=== PATIENT | male | born 1940 | race Caucasian/White ===

== ENCOUNTER 2016-11-07 07:19 | Day surgery (SDC) | payer MEDICARE, BC ==
[~2016-11-07 07:19] MED LIST: ACETAMINOPHEN WITH CODEINE 1 EACH TABLET PO PRN; ONDANSETRON HCL/PF 2 MG/ML VIAL IV PRN; OXYBUTYNIN CHLORIDE 5 MG TABLET PO PRN; RINGERS SOLUTION,LACTATED 1,000 ML IV PRN; ceFAZolin SODIUM 1 GM in DEXTROSE 5 % IN WATER 100 ML IV PRN; oxyCODONE HCL/ACETAMINOPHEN 1 TAB TABLET PO PRN
[2016-11-07] MEDS ORDERED: RINGERS SOLUTION,LACTATED 1,000 ML IV ONE (07:52)
[2016-11-07 10:43] VITALS: BP 105/45
== END 2016-11-07 07:20 | disposition home or self-care (01) ==
LOC: AMB 07:19
PROVIDERS: ATTEND Urology
PROC: 0TBC8ZX Excision of Bladder Neck, Via Natural or Artificial Opening Endoscopic, Diagnostic (ICD-10-PCS; principal; 2016-11-07 08:30)
DX: N32.0 Bladder-neck obstruction (principal); Z87.891 Personal history of nicotine dependence

== ENCOUNTER 2016-12-14 16:06 | Emergency (ER) | payer MEDICARE, BC ==
--- OUTSIDE RECORDS SUMMARY | 2016-12-14 17:45 | XMS REPORT | Continuity of Care Document ---
:1940 Author Organization [facility] ([facility]) Address [address] [place] [address] Phone [phone] Care Team Providers Name Role Phone Benja Dennis Primary Care Provider [phone] Source Comments This disclosure is being made pursuant to the Care Everywhere program, applicable federal and state laws, and may not contain all informaitonavailable regarding this patient.[facility] ([facility]) Active Allergies and Adverse Reactions No Active Allergies Current Medications Prescription Sig. Disp. Refills Start End Status Date Date MULTIVITAMINS take 1 Tab by Active (MULTI-VITAMIN PO) mouth daily. aspirin 81 mg tablet take 81 mg by Active mouth daily. cyanocobalamin (VITAMIN take 1,000 mcg by Active B-12) 1,000 mcg tablet mouth daily. CALCIUM take by mouth. Active CARBONATE/VITAMIN D3 (CALCIUM 600 + D PO) ERGOCALCIFEROL (VITAMIN take 2,000 Int'l Active D PO) Units by mouth. DOCOSAHEXANOIC ACID/EPA take 4 Caps by Active (FISH OIL PO) mouth daily. GREEN TEA EXTRACT PO take 2 Tabs by Active mouth daily. vitamin E 400 unit take 400 Units by Active capsule mouth 2 times daily. ascorbic acid (ASCORBIC take 500 mg by Active ACID) 500 mg tablet mouth daily. Selenium 200 mcg Tab take by mouth Active daily. Folic Acid 800 mcg Tab take by mouth Active daily. SOY ISOFLAVONES PO take by mouth Active daily. LYCOPENE PO take 66 mg by Active mouth daily. amlodipine-benazepril take 1 Cap by Active (LOTREL) 5-20 mg per mouth daily. capsule hydrochlorothiazide take 25 mg by Active (HYDRODIURIL) 25 mg mouth daily. tablet Verapamil 240 mg C24P take by mouth. Active nortriptyline (PAMELOR) take 50 mg by Active 50 mg capsule mouth at bedtime. alprostadil (MUSE) 500 insert 1 4 Suppository 11 01/04/20 Active mcg Supp Suppository 10 urethrally as needed. Indications: Erectile Dysfunction alprostadil (CAVERJECT 20 mcg by 4 Each 11 01/04/20 Active IMPULSE) 20 mcg Intracavernosal 10 injection route as needed. 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 go-live --MAL Follow-up examination, following unspecified surgery 11/07/2003 Closed fracture of acetabulum 11/07/2003 Most Recent Encounters Date Type Specialty Providers Description 11/13/2016 Hospital Encounter Radiation Oncology Benja Bran, Chief Comp: Patient MD Reported Reason For Visit 10/30/2016 Hospital Encounter Radiation Oncology Benja Bran, Chief Comp: Patient MD Reported Reason For Visit 10/20/2016 Hospital Encounter Radiation Oncology Benja Bran, Chief Comp: Patient MD Reported Reason For Visit 10/03/2016 Hospital Encounter Radiation Oncology Benja Bran, Chief Comp: Patient MD Reported Reason For Visit Social History Tobacco Use Types Packs/Day Years Used Date Current Every Day Smoker 1 50 Alcohol Use Drinks/Week oz/Week Comments Yes Last Filed Vital Signs Vital Sign Reading Time Taken Blood Pressure 156/69 06/24/2010 3:07 PM CDT Pulse 72 06/24/2010 3:07 PM CDT Temperature 36 C (96.8 F) 06/24/2010 3:07 PM CDT Respiratory Rate 16 06/11/2010 1:49 PM CDT Height 1.8 m (5' 10.87") 06/11/2010 1:49 PM CDT Weight 95.3 kg (210 lb 1.6 oz) 06/24/2010 3:07 PM CDT Body Mass Index 29.41 06/24/2010 3:07 PM CDT Oxygen Saturation 94% 06/11/2010 1:49 PM CDT Plan of Care Health Maintenance Due Date Last Done Comments Hepatitis B Vaccine (1 of 3 - Primary Series) 1940 Tdap Vaccine 1951 Lipid Disorder Screening 1958 Td Vaccine 1958 Colonoscopy 1990 Zoster Vaccine 2000 Pneumococcal Vaccine (1 of 2 - PCV13) 2005 Influenza Vaccine: Seasonal (#1) 06/02/2016 Results from Last 3 Months Not on file
--- OUTSIDE RECORDS SUMMARY | 2016-12-14 17:45 | XMS REPORT | Summary of Care ---
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 Discharge Disposition: 01 Discharged to Home or Self Care Attending Physician: Rommel Meraz MD Referring Physician: Rommel Meraz MD Vital Signs Most recent to oldest [Reference Range]: 1 Temperature Temporal Artery [36.0-38.0 DegC] 36.3 DegC (11/14/16 10:58 AM) Peripheral Pulse Rate [60-100 bpm] 66 bpm (11/14/16 10:58 AM) Blood Pressure [90-130/60-90 mmHg] 136/74mmHg *HI* (11/14/16 10:58 AM) Mean Arterial Pressure, Cuff 95 mmHg (11/14/16 10:58 AM) Height/Length Measured 182 cm (11/14/16 10:58 AM) Weight Dosing 93.30 kg1 (11/14/16 11:01 AM) Weight Measured 93.3 kg (11/14/16 10:58 AM) BSA Measured 2.15 m2 (11/14/16 10:58 AM) Body Mass Index Measured 28.17 kg/m2 (11/14/16 10:58 AM) 1Result Comment: This result was because the dosing weight was either not entered or it is>30 days old. This result is based off: Weight Measured November 14, 2016 10:58:00 MONOGRAM MAKER by Kenisha Cazares RN Problem List Condition Effective Dates Status Health Status Informant Other decreased white blood cell Active count(Confirmed) Allergies, Adverse Reactions, Alerts Substance Reaction Severity Status Levaquin Active Medications amLODIPine-atorvastatin 5 mg-20 mg oral tablet 1 tab(s), Oral, Daily, 0 Refill(s), Start Date: 08/29/14 9:38:00 CDT Start Date: 08/29/14 Status: OrderedamLODIPine-benazepril 5 mg-20 mg oral capsule 1 cap(s), Oral, Daily, # 30 cap(s), 0 Refill(s), Start Date: 09/12/16 16:33:00 [employer]GRAM [employer]ER Start Date: 09/12/16 Status: OrderedBactrim DS 800 mg-160 mg oral tablet 1 tab(s), Oral, BID, X 3 days, # 6 tab(s), 0 Refill(s), Start Date: 11/07/16 9: 28:00 MONOGRAM MAKER, Pharmacy: [place], [place] Start Date: 11/07/16 Stop Date: 11/10/16 Status: CompletedCaverject 20 mcg injection See Instructions, 20 mcg in the penis as needed, # 3 cartridge(s), 3 Refill(s), Start Date: 10/17/16 12:03:00 MONOGRAM MAKER, Pharmacy: [place], [place] Start Date: 10/17/16 Status: Orderedclotrimazole-betamethasone 1%-0.05% topical cream 1 maribell, Topical, BID, X 10 days, # 15 gm, 2 Refill(s), Start Date: 09/12/16 10:31 :00 MONOGRAM MAKER, Pharmacy: [place], [place] Start Date: 09/12/16 Stop Date: 10/12/16 Status: CompletedDaily Multi 1 tab(s), Oral, Daily, 0 Refill(s), Start Date: 08/29/14 9:42:00 CDT Start Date: 08/29/14 Status: Orderedfolic acid 400 mcg, Oral, Daily, 0 Refill(s), Start Date: 08/29/14 9:44:00 CDT Start Date: 08/29/14 Status: Orderedhydrochlorothiazide 25 mg oral tablet 1 tab(s), Oral, Daily, 0 Refill(s), Start Date: 08/29/14 9:39:00 CDT Start Date: 08/29/14 Status: Orderedmagnesium gluconate 250 mg oral tablet 1 tab(s), Oral, Daily, 0 Refill(s), Start Date: 08/29/14 9:43:00 CDT Start Date: 08/29/14 Stop Date: 04/25/16 Status: Discontinuednortriptyline 50 mg, Oral, HS, 0 Refill(s), Start Date: 08/29/14 9:40:00 CDT Start Date: 08/29/14 Status: OrderedOcuvite 1 tab(s), Oral, Daily, 0 Refill(s), Start Date: 08/29/14 9:44:00 CDT Start Date: 08/29/14 Status: OrderedReadi-Cat 2 oral suspension 2 bottles, Oral, ONETIME, CT scheduled on 10-28-16 1:00 p.m., # 2 bottles, 0 Refill(s), Start Date: 10/22/16 16:15:00 MONOGRAM MAKER, Pharmacy: [facility] Start Date: 10/22/16 Stop Date: 11/14/16 Status: Completedverapamil 240 mg/24 hours oral capsule, extended release 1 cap(s), Oral, Daily, 0 Refill(s), Start Date: 08/29/14 9:39:00 CDT Start Date: 08/29/14 Status: OrderedVitamin B-12 1000 mcg oral tablet 1 tab(s), Oral, Daily, 0 Refill(s), Start Date: 08/29/14 9:43:00 CDT Start Date: 08/29/14 Status: OrderedVitamin D with Minerals oral tablet 2000 iu tab(s), Oral, Daily, 0 Refill(s), Start Date: 08/29/14 9:44:00 CDT Start Date: 08/29/14 Status: OrderedXanax 0.25 mg oral tablet 0.25 mg, Oral, As Indicated, takes as needed at hs., 0 Refill(s), Start Date: 9:40:00 CDT Start Date: 08/29/14 Status: Ordered Results No data available for this section Immunizations No data available for this section Procedures Procedure Date Related Diagnosis Body Site Cataract surgery1 Closed reduction of fracture of hip Hip replacement Prostatectomy 1x2 Social History No data available for this section Assessment and Plan No data available for this section
--- NOTE | 2016-12-14 19:02 | ERNOTE ---
Lower Extremity HPI - Narrative Date of Service: 12/14/16 - General Lower Extremities Pain: other: right - calf Time Seen by Provider: 12/14/16 17:32 Source: patient Exam Limitations: no limitations - Immun/Allergies/Home Medications Immunizations: IMMUNIZATION HX Immunizations Up to Date No History of Influenza Vaccine No Hx Pneumococcal Vaccination No Allergies/Adverse Reactions: Allergies Allergy/AdvReac Type Severity Reaction Status Date / Time levofloxacin [From Levaquin] AdvReac Mild RASH Verified 12/14/16 16:33 Home Medications: HOME MEDICATIONS ALPRAZolam [Xanax] 0.25 mg PO HS 10/20/14 [Last Taken Unknown] Amlodipine Besylate/Benazepril [Lotrel 5-20 mg Capsule] 1 cap PO DAILY 10/20/14 [Last Taken 11/07/16 06:00] Beta-Carotene(A) W-C , E/Min [Ocuvite] 1 tab PO DAILY 10/20/14 [Last Taken Unknown] Cholecalciferol (Vitamin D3) [Vitamin D3] 2,000 unit PO DAILY 10/20/14 [Last Taken Unknown] Cyanocobalamin [Vitamin B-12] 1,000 mcg PO DAILY 10/20/14 [Last Taken Unknown] Multivitamins [Multivitamin Sotero] 1 cap PO DAILY 10/20/14 [Last Taken Unknown] Nortriptyline HCl [Pamelor] 50 mg PO HS 10/20/14 [Last Taken Unknown] Verapamil HCl [Verapamil Sr] 240 mg PO DAILY 10/20/14 [Last Taken Unknown] Folic Acid 0.8 mg PO DAILY 09/18/16 [Last Taken Unknown] Hydrochlorothiazide [Hydrodiuril] 12.5 mg PO DAILY 09/18/16 [Last Taken 06:00] Omeprazole [Prilosec] 20 mg PO DAILY 11/06/16 [Last Taken Unknown] - History of Present Illness Narrative: Patient presents to the ED for right calf pain and mild swelling. He denies any trauma. He has noticed this for the last 4 days. Has neuropathy. No new N /T/W given this. He was concerned about blood clot so came to the ED for evaluation. Has not seen anyone else for this. No CP or SOB. No abdominal pain. Achy pain, mild now. Occurred: other - 4 days ago Method of Injury: Reports: other - none Loss of Consciousness: Reports: no loss of consciousness Modifying Factors - (Improves): Reports: other - nothine Modifying Factors - (Worsens): Reports: other - nothing Associated Symptoms: Denies: unable to bear weight, chest pain Other Injuries: Reports: none Subsequent Symptoms: Reports: other - none Prior Treament: Denies: recently seen Review of Systems - Review of Systems Constitutional: Absent: fever Respiratory: Absent: shortness of breath Cardiology: Absent: chest pain Gastrointestinal/Abdominal: Absent: abdominal pain Genitourinary: Present: other - recent surgery Musculoskeletal: Present: See HPI Skin: Absent: rash Neurological: Absent: weakness - Patient's Past Medical History Patient History - Medical: GERD Patient History - Cardiac/Respiratory: Hypertension Patient History - Cancer: Prostate, Other Patient History - Surgical Procedures: Cataracts, Total Hip Replacement, Other Patient History - Other: None - Family History Mother Family History - Medical: , No pertinent hx Family History - Cardiac/Respiratory: CVA/Stroke Father Family History - Medical: , No pertinent hx Family History - Cardiac/Respiratory: CVA/Stroke - Social History Living Situations: home Abuse History: No History of abuse Psych History: No pertinent hx Alcohol Use: occasionally Drug Use: none - Immunizations Immunizations Up to Date: No Hx Pneumococcal Vaccination: No History of Influenza Vaccine: No Physical Exam - Physical Exam General Appearance: Present: alert, no apparent distress Eye Exam: Normal inspection: bilateral, PERRL: bilateral Ears, Nose, Throat: Present: normal ENT inspection Neck: Present: normal inspection Respiratory: Present: no respiratory distress, no accessory muscle use, lungs clear Cardiovascular/Chest: Present: regular rate, rhythm, other - strong DP pulse Gastrointestinal/Abdominal: Present: normal bowel sounds, nontender, soft. Absent: tenderness Back Exam: Present: normal range of motion Extremity Exam: Present: other - No tendenress right hip, knee Tib/ib, ankle, of foot. Strong pulses. mild right calf tenderness. No compartment syndrome. Minimal swelling right c/w left. Neurological Exam: Present: alert, other - no motor or sensory deficits.. Absent: motor weakness Skin Exam: Present: other - no cellulitis. Absent: cyanosis, skin rash ED Progress - Vital Signs Patient's Vital Signs:: I have reviewed the patient's vital signs. Vital Signs: Vital Signs 12/14/16 16:27 Temperature 36.6 C Pulse Rate 76 Respiratory 12 Rate Blood Pressure 138/58 O2 Sat by Pulse 97 Oximetry - Progress/Reassessment Chief Complaint: Lower Extremity Pain/ Injury - Transfer of Care Physician Sign Out: Taye Roberto Receiving Physician: [place] Siddiqi Pending Results: CT/MRI results Expected Disposition: Discharge Departure Clinical Impression: Calf pain - Departure Referrals: Benja Dennis MD [Primary Care Provider] -
[2016-12-14 19:37] VITALS: BP 151/66
== END 2016-12-14 20:07 | disposition home or self-care (01) ==
LOC: ER 16:06
DX: M79.661 Pain in right lower leg (principal)

== ENCOUNTER 2017-09-30 20:58 | Emergency (ER) | payer MEDICARE, BC ==
[2017-09-30] MEDS ORDERED: KETOROLAC TROMETHAMINE 30 MG/ML VIAL IM ONE (21:34)
[2017-09-30] MEDS ORDERED: COD LIVER OIL/ZINC OXIDE 113 APPL TUBE TP ONE (21:36)
[2017-09-30] MEDS ORDERED: KETOROLAC TROMETHAMINE 30 MG/ML VIAL ONE (21:39)
[2017-09-30 21:55] LABS: Hematocrit 25.4 % (42.0-52.0); Hemoglobin 9.3 gm/dL (13.5-18.0); Mean Cell Volume 93.7 fl (78-100); Mean Corpuscular Hemoglobin 34.3 pg (27-31); Mean Corpuscular Hgb Conc 36.6 g/dl (32-36); Mean Platelet Volume 8.2 fl (6.0-9.5); Platelet Count 256 K/mm3 (150-450); Red Blood Count 2.71 M/mm3 (4.7-6.0); Red Cell Distribution Width 14.3 % (11.5-14.0); White Blood Count 4.6 K/mm3 (4.0-10.5)
--- NOTE | 2017-09-30 21:56 | ERNOTE ---
<Meliza Gong - Last Filed: 09/30/17 22:15> ER Male HPI Date of Service: 09/30/17 Stated Complaint: BURNING IN PELVIC AREA/PARANEAL AREA Time Seen by Provider: 09/30/17 21:22 Source: patient Exam Limitations: no limitations Immunizations: IMMUNIZATION HX Immunizations Up to Date Yes History of Influenza Vaccine Yes Hx Pneumococcal Vaccination Yes Allergies/Adverse Reactions: Allergies levofloxacin [From Levaquin] Adverse Reaction (Mild, Verified 12/14/16 16:33) RASH Home Medications: HOME MEDICATIONS ALPRAZolam [Xanax] 0.25 mg PO HS 10/20/14 [Last Taken Unknown] Amlodipine Besylate/Benazepril [Lotrel 5-20 mg Capsule] 1 cap PO DAILY 10/20/14 [Last Taken 11/07/16 06:00] Cyanocobalamin [Vitamin B-12] 1,000 mcg PO DAILY 10/20/14 [Last Taken Unknown] Multivitamins [Multivitamin Sotero] 1 cap PO DAILY 10/20/14 [Last Taken Unknown] Nortriptyline HCl [Pamelor] 50 mg PO HS 10/20/14 [Last Taken Unknown] Verapamil HCl [Verapamil Sr] 240 mg PO DAILY 10/20/14 [Last Taken Unknown] Hydrochlorothiazide [Hydrodiuril] 25 mg PO DAILY 09/18/16 [Last Taken 11/07/16 06:00] Ergocalciferol (Vitamin D2) [Vitamin D2] 2,000 units PO DAILY 09/30/17 [Last Taken Unknown] Sulfamethoxazole/Trimethoprim [Bactrim] 1 tab PO BID 09/30/17 [Last Taken Unknown] Cefpodoxime Proxetil 200 mg PO BID #20 tablet 10/01/17 [Last Taken Unknown] Nabumetone 750 mg PO BID #20 tablet 10/01/17 [Last Taken Unknown] - History of Present Illness Narrative: Pt. comes in with c/o B hip pain and folds and perineal area. Pt. recently had a TURP and ws on the table for a long time and is costantly incontinent so he is alway wet in this area and was seen by his urologist and was strted on abx as he had a fever with this. Pt. denies any SOB, CP, NVD, dysuria, alleviating factors despite using miconazole for this. Pt. also has a hx of hip replacement and has been increasingly weak. Pt. has also recently used Tylenol and Naproxen for the pain with no relief and tried a norco but fell while using this so decided to stop. Pt. denies any new symptoms since fall. Review of Systems - Review of Systems Constitutional: Present: fever, weakness. Absent: recent illness, chills, fatigue, malaise EYE: Present: no symptoms reported. Absent: eye pain ENT: Present: no symptoms reported Respiratory: Present: no symptoms reported. Absent: shortness of breath, cough , wheezing Cardiology: Present: no symptoms reported. Absent: chest pain, palpitations, edema Gastrointestinal/Abdominal: Present: no symptoms reported. Absent: nausea, vomiting, diarrhea, abdominal pain Genitourinary: Present: pain - perineal and groin burning, other - incontinence. Absent: frequency, decreased urinary output Musculoskeletal: Present: joint pain - B hips and ischial spines. Absent: back pain Skin: Present: no symptoms reported. Absent: rash, change in hair/nails Neurological: Present: no symptoms reported. Absent: headache, dizziness/light- headedness, numbness, tingling All Other Systems: All systems neg except as marked - Patient's Past Medical History Patient History - Medical: GERD Patient History - Cardiac/Respiratory: Hypertension Patient History - Cancer: Prostate, Other Patient History - Surgical Procedures: Cataracts, Total Hip Replacement, Other, Urology Patient History - Other: None - Family History Mother Family History - Medical: , No pertinent hx Family History - Cardiac/Respiratory: CVA/Stroke Father Family History - Medical: , No pertinent hx Family History - Cardiac/Respiratory: CVA/Stroke - Social History Living Situations: home Abuse History: No History of abuse Psych History: No pertinent hx Smoking Status: Former smoker Have you smoked in the past 12 months: No Alcohol Use: occasionally Drug Use: none - Immunizations Immunizations Up to Date: Yes Hx Pneumococcal Vaccination: Yes History of Influenza Vaccine: Yes Physical Exam - Physical Exam General Appearance: Present: wd/wn, alert, no apparent distress Head Exam: Present: normal inspection, no evidence of injury, no tenderness w palpation Eye Exam: Normal inspection: bilateral, PERRL: bilateral, EOMI: bilateral Ears, Nose, Throat: Present: normal ENT inspection, normal pharynx Neck: Present: normal inspection, nontender, supple, full range of motion. Absent: lymphadenopathy (R), lymphadenopathy (L) Respiratory: Present: no respiratory distress, normal breath sounds, no accessory muscle use, chest nontender, lungs clear Cardiovascular/Chest: Present: regular rate, rhythm, no murmur, normal peripheral pulses Gastrointestinal/Abdominal: Present: normal bowel sounds, nontender, nondistended, soft, no organomegaly Back Exam: Present: normal inspection, normal range of motion, no CVA tenderness , no vertebral tenderness Extremity Exam: Present: normal inspection, non-tender, normal range of motion, no edema Neurological Exam: Present: alert, oriented, normal mood/affect, no motor/ sensory deficits, 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 Absent: pallor, skin rash ED Progress - Vital Signs Patient's Vital Signs:: I have reviewed the patient's vital signs. Vital Signs: Vital Signs 09/30/17 21:05 Temperature 36.7 C Pulse Rate 87 Respiratory 18 Rate Blood Pressure 144/54 O2 Sat by Pulse 96 Oximetry - Progress/Reassessment Chief Complaint: Genitourinary Problem - Transfer of Care Physician Sign Out: Meliza Gong Receiving Physician: Nba Miguel Pending Results: Labs Expected Disposition: Discharge Departure Clinical Impression: Urinary retention Excoriation of groin Qualifiers: Encounter type: initial encounter Qualified Code(s): S30.811A - Abrasion of abdominal wall, initial encounter Hip pain Qualifiers: Laterality: bilateral Qualified Code(s): M25.551 - Pain in right hip UTI (urinary tract infection) Qualifiers: Urinary tract infection type: acute cystitis Hematuria presence: with hematuria Qualified Code(s): N30.01 - Acute cystitis with hematuria - Departure Disposition: Home Follow Up Needed Condition: Good Instructions: Urinary Tract Infection, Adult, [id number] Referrals: Benja Dennis MD [Primary Care Provider] - Prescriptions: Cefpodoxime Proxetil 200 mg PO BID #20 tablet Nabumetone 750 mg PO BID #20 tablet <Nba Miguel - Last Filed: 10/06/17 04:35> ER Male HPI Immunizations: IMMUNIZATION HX Immunizations Up to Date Yes History of Influenza Vaccine Yes Hx Pneumococcal Vaccination Yes ED Progress - Results and Orders Patient's Lab Results:: I have reviewed the patient's lab results. Results and Orders: Laboratory Tests 09/30/17 09/30/17 09/30/17 21:47 21:47 21:47 WBC 4.6 Hgb 9.3 L Hct 25.4 L Plt Count 256 Sodium 131 L Potassium 3.6 Chloride 94 L BUN 20 Creatinine 1.35 Random Glucose 177 H Lactic Acid, Venous 1.5 Calcium 9.0 Total Bilirubin 0.4 AST 10 ALT 23 Alkaline Phosphatase 116 Total Protein 6.7 Albumin 3.1 L Urine Color Urine Appearance Urine pH Ur Specific [place] Urine Protein Urine Glucose (UA) Urine Ketones Urine Blood Urine Nitrate Urine Bilirubin Prot Sulfosalicylic Acd Urine Urobilinogen Ur Leukocyte Esterase Urine RBC Urine WBC Ur Epithelial Cells Amorphous Sediment Urine Bacteria Urine Culture Comments 09/30/17 22:10 WBC Hgb Hct Plt Count Sodium Potassium Chloride BUN Creatinine Random Glucose Lactic Acid, Venous Calcium Total Bilirubin AST ALT Alkaline Phosphatase Total Protein Albumin Urine Color Yellow Urine Appearance Cloudy Urine pH 6.0 Ur Specific [place] 1.020 Urine Protein 30 H Urine Glucose (UA) Negative Urine Ketones 5 Urine Blood 25 H Urine Nitrate Negative Urine Bilirubin Negative Prot Sulfosalicylic Acd 1+ Urine Urobilinogen Normal Ur Leukocyte Esterase 100 H Urine RBC 5-10 H Urine WBC >50 H Ur Epithelial Cells None seen Amorphous Sediment Moderate - 2+ H Urine Bacteria None seen Urine Culture Comments Culture to follow - Vital Signs Vital Signs: Vital Signs 09/30/17 09/30/17 21:05 23:18 Temperature 36.7 C Pulse Rate 87 84 Respiratory 18 18 Rate Blood Pressure 144/54 132/56 O2 Sat by Pulse 96 96 Oximetry
[2017-09-30 21:57] LABS: Total Cells Counted 100
[2017-09-30 22:09] LABS: Albumin * 3.1 gm/dl (3.4-5.0); Anion Gap 13.8 mmol/L (6.8-13.8); BUN/Creatinine Ratio 14.8 (9.0-21.6); Bilirubin, Total 0.4 mg/dL (0.0-1.1); Ca. Corrected For Albumin 9.4 mg/dL (8.4-10.2); Carbon Dioxide 26.8 mmol/L (24-32.6); Potassium 3.6 mmol/L (3.4-4.6); Total Protein 6.7 gm/dL (6.2-8.2)
[2017-09-30] MEDS ORDERED: NORMAL SALINE 1,000 ML IV ONE (22:15)
[2017-09-30 22:23] LABS: Urine Bilirubin Negative (NEGATIVE); Urine Blood 25 /ul (NEGATIVE); Urine Ketone 5 mg/dL (NEGATIVE); Urine Nitrite Negative (NEGATIVE); Urine Protein 30 mg/dL (NEGATIVE); Urine Urobilinogen Normal (NORMAL)
[2017-09-30 22:30] LABS: Band 1 % (0-2.0); Basophil 1 % (0-1); Eosinophil 4 % (0-3); Lymphocyte 12 % (20-51); Monocyte 9 % (0-9); Neutrophil 73 % (42-75); Neutrophil # 3.4 K/mm3 (1.3-6.0)
[2017-09-30 22:31] LABS: Hypersegmented Polys Trace; Ovalocytes 2+; Platelet Estimate Normal (NORMAL); Rouleaux 3+; Target Cells 1+; Tear Drop Cells Trace; Toxic Granulation 1+
[2017-09-30 22:32] LABS: Urine Appearance Cloudy; Urine Color Yellow
[2017-09-30 22:34] LABS: Urine Amorphous Sediment Moderate - 2+ (NONE-FEW); Urine Bacteria None Seen; Urine WBC >50 /hpf (0-5)
[2017-10-01 02:30] VITALS: BP 140/66
== END 2017-10-01 00:55 | disposition home or self-care (01) ==
LOC: ER 20:58
PROC: 0T9B7ZZ Drainage of Bladder, Via Natural or Artificial Opening (ICD-10-PCS; principal; 2017-09-30)
PROC: BT00ZZZ Plain Radiography of Bladder (ICD-10-PCS; 2017-09-30)
DX: R33.9 Retention of urine, unspecified (principal); S30.811A Abrasion of abdominal wall, initial encounter; M25.551 Pain in right hip; N30.01 Acute cystitis with hematuria